=== PATIENT | female | born 1970 | race Caucasian/White ===

== ENCOUNTER 2017-11-20 08:01 | Inpatient (IN) | payer OTHER ==
[~2017-11-20] VITALS: Ht 152.4 cm; Wt 53.1 kg
[2017-11-20] MEDS ORDERED: SIDEROL TABLET1 EACH PO (08:48)
[2017-11-20] MEDS ORDERED: OSTERA TABLET1 EACH PO (08:49)
== END 2017-11-25 11:01 | disposition home or self-care (01) | DRG 743 ==
LOC: OB/GYN 11-24 05:40 → O/R 11-24 05:40 → OB/GYN 11-24 10:29 → SURH 11-24 11:15 → OB/GYN 11-25 11:01
PROVIDERS: Obstetrics & Gynecology Gynecology
PROC: 0USG7ZZ Reposition Vagina, Via Natural or Artificial Opening (ICD-10-PCS; 2017-11-24)
PROC: 0UT97ZZ Resection of Uterus, Via Natural or Artificial Opening (ICD-10-PCS; principal; 2017-11-24 21:15)
DX: N92.1 Excessive and frequent menstruation with irregular cycle (principal); I10 Essential (primary) hypertension